=== PATIENT | male | born 1980 | race African-American/Black ===

== ENCOUNTER 2016-11-22 04:32 | Emergency (ER) | payer SELFPAY ==
[~2016-11-22] VITALS: Ht 185.4 cm; Wt 118.0 kg
[2016-11-22] MEDS ORDERED: IBUPROFEN 800MG TABLET PO ONE (07:15)
[2016-11-22] MEDS ORDERED: BACITRACIN ZINC OINT UDPKT TOP ONE (07:30)
[2016-11-22 08:34] VITALS: BP 124/86
== END 2016-11-22 08:36 | disposition home or self-care (01) ==
LOC: ER 06:47
DX: S60.222A Contusion of left hand, initial encounter (principal); S60.511A Abrasion of right hand, initial encounter; M25.512 Pain in left shoulder; X58.XXXA Exposure to other specified factors, initial encounter; Y93.89 Activity, other specified; Y92.89 Other specified places as the place of occurrence of the external cause; Y99.8 Other external cause status
CPT/HCPCS: 73030; 73130; 99284